=== PATIENT | male | born 1985 | race Caucasian/White ===

== ENCOUNTER 2017-09-16 21:46 | Emergency (ER) | payer SELFPAY ==
[2017-09-16 22:09] VITALS: BP 152/98
[2017-09-16] MEDS ORDERED: HYDROCODONE/ACETAMINOPHEN 5-325 MG (6 TAB/ER DISP) PO PRN (22:28)
--- NOTE | 2017-09-16 22:35 | ER Document Report ---
ED General - General Chief Complaint: Back Pain Stated Complaint: PAIN IN LEGS AND BACK Time Seen by Provider: 09/16/17 22:15 TRAVEL OUTSIDE OF THE [place] IN LAST 30 DAYS: No - HPI Notes: Patient is a 32-year-old male history of chronic lower back pain, states that he has previous MRI that shows some messed up disks in his lumbar spine, presents with report that he just moved from [place] and lost his prescription of chronic hydrocodone. The patient denies any incontinence or focal weakness, but he states he has occasional paresthesia down the right leg chronically. The patient denies any abdominal pain or constipation or diarrhea. Patient states that he is concerned that he is starting to go through withdrawal symptoms with worsening of his back pain. He requests medication for withdrawal, and states that he has to start work tomorrow and he is trying not to go through withdrawal when he starts work. He moved out from [place] with his fiance and his future [id number] - Related Data Allergies/Adverse Reactions: No Known Allergies Allergy (Unverified 09/16/17 22:02) Past Medical History - General Information source: Patient - Social History Smoking Status: Current Every Day Smoker Chew tobacco use (# tins/day): No Frequency of alcohol use: None Drug Abuse: None Lives with: Family Family History: Reviewed & Not Pertinent Patient has suicidal ideation: No Patient has homicidal ideation: No Renal/ Medical History: Denies: Hx Peritoneal Dialysis Review of Systems - Review of Systems Notes: REVIEW OF SYSTEMS: CONSTITUTIONAL : Denies fever, chills, or sweats. Denies recent illness. EENT: Denies eye, ear, throat, or mouth pain or symptoms. Denies nasal or sinus congestion or discharge. Denies throat, tongue, or mouth swelling or difficulty swallowing. CARDIOVASCULAR: Denies chest pain. Denies palpitations or racing or irregular heart beat. Denies ankle edema. RESPIRATORY: Denies cough, cold, or chest congestion. Denies shortness of breath, difficulty breathing, or wheezing. GASTROINTESTINAL: Denies abdominal pain or distention. Denies nausea, vomiting , or diarrhea. Denies blood in vomitus, stools, or per rectum. Denies black, tarry stools. Denies constipation. GENITOURINARY: Denies difficulty urinating, painful urination, burning, frequency, blood in urine, or discharge. MUSCULOSKELETAL: Denies neck pain or stiffness. Denies joint pain or swelling. SKIN: Denies rash, lesions or sores. HEMATOLOGIC : Denies easy bruising or bleeding. LYMPHATIC: Denies swollen, enlarged glands. NEUROLOGICAL: Denies confusion or altered mental status. Denies passing out or loss of consciousness. Denies dizziness or lightheadedness. Denies headache. Denies weakness or paralysis or loss of use of either side. Denies problems with gait or speech. Denies seizures. Reports chronic sensory deficit down the right leg from his back injury. PSYCHIATRIC: Denies anxiety or stress. Denies depression, suicidal ideation, or homicidal ideation. ALL OTHER SYSTEMS REVIEWED AND NEGATIVE. Dictation was performed using [employer] voice recognition software Physical Exam - Vital signs Vitals: Temp Pulse Resp BP Pulse Ox 97.9 F 88 20 152/98 H 98 09/16/17 22:08 09/16/17 22:08 09/16/17 22:08 09/16/17 22:08 09/16/17 22:08 - Notes Notes: PHYSICAL EXAMINATION: GENERAL: Well-appearing, well-nourished and in no acute distress. HEAD: Atraumatic, normocephalic. EYES: Pupils equal round and reactive to light, extraocular movements intact, sclera anicteric, conjunctiva are normal. ENT: Nares patent, oropharynx clear without exudates. Moist mucous membranes. NECK: Normal range of motion, supple without lymphadenopathy LUNGS: Breath sounds clear to auscultation bilaterally and equal. No wheezes rales or rhonchi. HEART: Regular rate and rhythm without murmurs ABDOMEN: Soft, nontender, nondistended abdomen. No guarding, no rebound. No masses appreciated. Musculoskeletal: Normal range of motion, no pitting or edema. No cyanosis. Pain through the lower lumbar spine and paraspinal region. No bony deformity or crepitance. No erythema. No CVA tenderness. NEUROLOGICAL: Cranial nerves grossly intact. Normal speech, normal gait. Normal motor exams. No saddle anesthesia. No gross motor deficits. Normal reflexes. Subjective numbness down the right lower extremity which the patient states is chronic. PSYCH: Normal mood, normal affect. SKIN: Warm, Dry, normal turgor, no rashes or lesions noted. Course - Re-evaluation Re-evalutation: 09/16/17 22:37 Patient was told that he needed to follow-up with local pain management or regular practitioner regarding his pain medication needs. A prescription for clonidine was provided to prevent withdrawal symptoms, and he was instructed not to take more than 1 tablet twice per day. No evidence for acute cauda equina syndrome, and patient's back pain is chronic. - Vital Signs Vital signs: Temp Pulse Resp BP Pulse Ox 97.9 F 88 20 152/98 H 98 09/16/17 22:08 09/16/17 22:08 09/16/17 22:08 09/16/17 22:08 09/16/17 22:08 Discharge - Discharge Clinical Impression: Narcotic withdrawal Low back pain Qualifiers: Chronicity: chronic Back pain laterality: unspecified Sciatica presence: unspecified whether sciatica present Qualified Code(s): M54.5 - Low back pain; G89.29 - Other chronic pain; G89.29 - Other chronic pain Condition: Stable Disposition: HOME, SELF-CARE Instructions: Low Back Pain ([facility]) Additional Instructions: Take clonidine no more than 2 tablets per day for narcotic withdrawal symptoms. Obtain records of your MRI results of your back to take to pain management. Prescriptions: Clonidine HCl [Clonidine HCl ER] 0.1 mg PO Q12HP PRN #20 [id number] PRN Reason: Withdrawal Symptoms Referrals: EUSEBIO ABARCA MD [ACTIVE STAFF] - Follow up as needed
== END 2017-09-16 22:44 | disposition home or self-care (01) ==
LOC: ER 21:46
DX: F19.939 Other psychoactive substance use, unspecified with withdrawal, unspecified (principal); M54.5 Low back pain; G89.29 Other chronic pain; M79.604 Pain in right leg; M79.605 Pain in left leg; R20.0 Anesthesia of skin; F17.200 Nicotine dependence, unspecified, uncomplicated
CPT/HCPCS: 99283

== ENCOUNTER 2017-10-07 16:13 | Emergency (ER) | payer MEDICAID ==
[2017-10-07 16:19] VITALS: BP 139/91
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
== END 2017-10-07 16:55 | disposition home or self-care (01) ==
LOC: ER 16:13
DX: G89.29 Other chronic pain (principal); M54.9 Dorsalgia, unspecified; M79.604 Pain in right leg; W19.XXXS Unspecified fall, sequela; G25.81 Restless legs syndrome
CPT/HCPCS: 99283